=== PATIENT | male | born 1990 | race Caucasian/White ===

== ENCOUNTER 2019-11-08 19:56 | Inpatient (IN) ==
[2019-11-08] MEDS ORDERED: KETOROLAC 30 MG/1 ML VIAL IV STA (20:23)
[2019-11-08] MEDS ORDERED: ASPIRIN 325 MG TABLET PO STA (20:23)
[2019-11-08 20:36] LABS: Basophils # 0.1 10*3/uL (0.0-0.2); Basophils % 1.2 % (0.0-0.8); Eosinophils # 0.2 10*3/uL (0.0-0.87); Eosinophils % 1.7 % (0.00-10.9); Hematocrit 40.9 VOL% (42.0-52.0); Hemoglobin 13.7 GM/DL (14.0-18.0); Immature Granulocytes % 0.5 %; Immature Granulocytes Absolute 0.06 #; Lymphocytes # 2.9 10*3/uL (1.4-4.0); Lymphocytes % 25.9 % (21.2-54.2); Mean Corpuscular HGB Conc 33.5 GM/DL (32-36); Mean Corpuscular Volume 86.3 FL (87-102); Mean Platelet Volume 10.6 FL (9.6-12.0); Monocytes % 5.6 % (1.7-12.7); Neutrophils % 65.1 % (38.7-73.9); Platelet Count 272 T/CUMM (130-400); Red Blood Count 4.74 MC/CUMM (3.8-5.5); Red Cell Distribution Width 12.6 % (9.3-17.3); White Blood Count 11.4 T/CUMM (4-12)
[2019-11-08 20:57] LABS: INR 1.1; PT Patient Result 12.1 SECS (9.8-11.9); Partial Thromboplastin Time 27.2 SECS (23.9-33.8)
[2019-11-08 20:58] LABS: Alanine Aminotransferase 40 U/L (16-61); Albumin 3.9 G/DL (3.4-5.0); Alkaline Phosphatase 77 U/L (45-117); Aspartate Amino Transferase 29 U/L (0-37); Blood Urea Nitrogen 14 MG/DL (7-18); Estimated Glom Filtration Rate 79 ML/MIN; Ferritin 74.7 ng/ml (26-388); Glucose 120 MG/DL (74-106); Osmolality,Calculated 271.1 MOS/KG (273-304); Total Protein 7.8 G/DL (6.4-8.3)
[2019-11-08 20:59] LABS: Troponin I 0.063 NG/ML (0.00-0.045)
[2019-11-08 21:25] LABS: Apearance,Urine Slightly Hazy (Clear); Bilirubin,Urine Negative (Negative); Blood, Urine Negative (Negative); Glucose,Urine (UA) Negative (Negative); Ketones,Urine Negative (Negative); Mucus,Urine Occasional /LPF (Occasional); Nitrite,Urine Negative (Negative); Protein,Urine Negative; Urine Color Yellow (Yellow); Urine Specific Gravity 1.012 (1.001-1.035); Urine Urobilinogen < 2.0 EU/DL (0.2-1.0); WBC,Urine 1 /HPF (0-6)
[2019-11-08] MEDS ORDERED: ACETAMINOPHEN 325 MG TABLET PO PRN (22:33)
[2019-11-08] MEDS ORDERED: NICOTINE 21 MG/24 HR PATCH TRANSDERM PRN (22:33)
[2019-11-08] MEDS ORDERED: diphenhydrAMINE CAP 25 MG CAPSULE PO PRN (22:33)
[2019-11-08] MEDS ORDERED: MORPHINE 4 MG/1 ML VIAL IV PRN (22:33)
[2019-11-08] MEDS ORDERED: DEXTROSE 50% 25 GM/50 ML VIAL IV PRN (22:33)
[2019-11-08] MEDS ORDERED: GLUCAGON 1 MG VIAL IM PRN (22:33)
[2019-11-08] MEDS ORDERED: ZALEPLON 5 MG CAPSULE PO PRN (22:33)
[2019-11-08] MEDS ORDERED: hydrALAZINE 20 MG/1 ML VIAL IV PRN (22:33)
[2019-11-08] MEDS ORDERED: ALBUTEROL 2.5 MG/3 ML NEB RESP TX PRN (22:33)
[2019-11-08] MEDS ORDERED: ONDANSETRON 4 MG/2 ML VIAL IV PRN (22:33)
[2019-11-08] MEDS ORDERED: guaiFENesin/DM ER 600-30 MG TABLET PO PRN (22:33)
[2019-11-08 22:34] LABS: Barbiturates Screen,Urine Negative (Negative); Benzodiazepines Screen,Urine Negative (Negative); Cannabinoid Screen,Urine Positive (Negative); Opiate Screen,Urine Negative (Negative); Phencyclidine Screen,Urine Negative (Negative)
[2019-11-08] MEDS ORDERED: POTASSIUM CHLORIDE 20 MEQ TABLET PO ONE (22:41)
[2019-11-08] MEDS ORDERED: SODIUM CHLORIDE 0.9% 1,000 ML IV SCH (23:00)
[2019-11-08] MEDS ORDERED: ENOXAPARIN 100 MG/ML SYRINGE SUBCUT SCH (23:00)
[2019-11-09 02:09] LABS: Basophils # 0.1 10*3/uL (0.0-0.2); Basophils % 1.1 % (0.0-0.8); Eosinophils # 0.2 10*3/uL (0.0-0.87); Eosinophils % 1.5 % (0.00-10.9); Hematocrit 42.5 VOL% (42.0-52.0); Immature Granulocytes % 0.2 %; Immature Granulocytes Absolute 0.02 #; Lymphocytes # 3.6 10*3/uL (1.4-4.0); Lymphocytes % 29.5 % (21.2-54.2); Mean Corpuscular HGB Conc 32.9 GM/DL (32-36); Mean Corpuscular Volume 87.8 FL (87-102); Mean Platelet Volume 10.8 FL (9.6-12.0); Monocytes % 6.5 % (1.7-12.7); Neutrophils % 61.2 % (38.7-73.9); Platelet Count 272 T/CUMM (130-400); Red Blood Count 4.84 MC/CUMM (3.8-5.5); Red Cell Distribution Width 12.8 % (9.3-17.3); White Blood Count 12.2 T/CUMM (4-12)
[2019-11-09 02:27] LABS: Calcium 9.2 MG/DL (8.5-10.1); Osmolality,Calculated 268.2 MOS/KG (273-304); Risk Ratio 5.88
[2019-11-09] MEDS: DOCUSATE SODIUM 100 MG CAPSULE PO SCH ×2 (08:33→20:42)
[2019-11-09] MEDS: ASPIRIN EC 81 MG TABLET PO SCH (08:33)
[2019-11-09] MEDS: PANTOPRAZOLE 40 MG TABLET PO SCH (08:33)
[2019-11-09] MEDS: METOPROLOL TARTRATE 25 MG TABLET PO SCH ×2 (08:33→20:42)
[2019-11-09] MEDS ORDERED: METOPROLOL TARTRATE 25 MG TABLET PO SCH (09:00)
[2019-11-09] MEDS ORDERED: HEPARIN 5,000 UNIT/1 ML VIAL IV ONE (10:31)
[2019-11-09] MEDS: HEPARIN DRIP 25,000 UNITS/500 ML PREMIX IV SCH (10:44)
[2019-11-09] MEDS ORDERED: WARFARIN 5 MG TABLET PO SCH (18:00)
[2019-11-10 06:01] LABS: Basophils # 0.1 10*3/uL (0.0-0.2); Basophils % 1.1 % (0.0-0.8); Eosinophils # 0.2 10*3/uL (0.0-0.87); Eosinophils % 2.6 % (0.00-10.9); Hematocrit 44.5 VOL% (42.0-52.0); Hemoglobin 14.6 GM/DL (14.0-18.0); Immature Granulocytes % 0.2 %; Immature Granulocytes Absolute 0.02 #; Lymphocytes # 3.6 10*3/uL (1.4-4.0); Mean Corpuscular HGB Conc 32.8 GM/DL (32-36); Mean Corpuscular Volume 86.9 FL (87-102); Mean Platelet Volume 11.7 FL (9.6-12.0); Monocytes % 6.6 % (1.7-12.7); Neutrophils % 44.5 % (38.7-73.9); Platelet Count 233 T/CUMM (130-400); Red Blood Count 5.12 MC/CUMM (3.8-5.5); Red Cell Distribution Width 12.8 % (9.3-17.3); White Blood Count 8.1 T/CUMM (4-12)
[2019-11-10 06:18] LABS: Osmolality,Calculated 265.2 MOS/KG (273-304)
[2019-11-10 08:26] VITALS: BP 134/97
[2019-11-10 08:53] LABS: INR 1.2
[2019-11-10] MEDS: ASPIRIN EC 81 MG TABLET PO SCH (09:05)
[2019-11-10] MEDS: PANTOPRAZOLE 40 MG TABLET PO SCH (09:05)
[2019-11-10] MEDS: DOCUSATE SODIUM 100 MG CAPSULE PO SCH (09:05)
[2019-11-10] MEDS: METOPROLOL TARTRATE 25 MG TABLET PO SCH (09:05)
[2019-11-10] MEDS: HEPARIN DRIP 25,000 UNITS/500 ML PREMIX IV SCH (09:08)
== END 2019-11-10 11:16 | disposition home or self-care (01) | DRG 287 ==
LOC: N.ED 19:56 → N.EDINP 22:33 → SUATTDRO 22:33 → N.EDINP 23:47 → N.TELES 11-09 00:42
PROVIDERS: ADMIT Internal Medicine; ATTEND Internal Medicine Geriatric Medicine